=== PATIENT | female | born 1995 | race Caucasian/White ===

== ENCOUNTER 2016-12-21 11:48 | Emergency (ER) | payer OTHER | END 2016-12-21 15:06 | disposition home or self-care (01) | LOC: ER1 11:48 | DX: S39.012A Strain of muscle, fascia and tendon of lower back, initial encounter (principal); V43.62XA Car passenger injured in collision with other type car in traffic accident, initial encounter; Y92.410 Unspecified street and highway as the place of occurrence of the external cause | CPT/HCPCS: 72131; 84703; 99284 ==

== ENCOUNTER → 2016-12-30 | Outpatient (CLI) | payer OTHER | LOC: KOH-I 11:19 | DX: M54.2 Cervicalgia (principal); V89.2XXA Person injured in unspecified motor-vehicle accident, traffic, initial encounter | CPT/HCPCS: 72040 ==

== ENCOUNTER → 2021-12-02 | Outpatient (CLI) | payer BC | LOC: KOH-I 09:54 | DX: R07.9 Chest pain, unspecified (principal) | CPT/HCPCS: 71046 ==

== ENCOUNTER 2021-12-27 18:04 | Emergency (ER) | payer BC | END 2021-12-27 20:33 | disposition home or self-care (01) | LOC: ER1 18:04 | DX: M79.662 Pain in left lower leg (principal) | CPT/HCPCS: 93971; 99283 ==

== ENCOUNTER → 2022-02-18 | Outpatient (CLI) | payer BC | LOC: EXRD 13:38 | DX: M79.622 Pain in left upper arm (principal); I82.612 Acute embolism and thrombosis of superficial veins of left upper extremity | CPT/HCPCS: 93971 ==